=== PATIENT | female | born 1985 | race Caucasian/White ===

== ENCOUNTER → 2017-07-17 10:54 | Observation (INO) ==
[2017-07-16 23:43] LABS: Bilirubin,Urine Moderate (Negative); Blood,Urine Negative (Negative); Clarity,Urine Turbid (Clear); Color,Urine Dark Yellow (Yellow); Glucose,Urine (UA) Normal (Normal); Ketones,Urine 40 mg/dL (Negative); Leukocyte Esterase,Urine Moderate (Negative); Nitrite,Urine Negative (Negative); Protein,Urine 100 mg/dL (Neg-Trace); Specific Gravity,Urine 1.029 (1.010-1.025); Urobilinogen,Urine Normal (Normal)
[2017-07-16 23:45] LABS: Bacteria,Urine Many per hpf (None-Few); RBC,Urine 0-3 per hpf (0-3); Squamous Epithelial Cell,Urine Many per lpf (None-Few); WBC,Urine 50-100 per hpf (0-3)
[2017-07-16 23:53] LABS: Amphetamine Screen,Urine Positive ng/mL (Cutoff=1000); Barbiturate Screen,Urine Negative ng/mL (Cutoff=200); Benzodiazepines Screen,Urine Negative ng/mL (Cutoff=200); Cannabinoid Screen,Urine Positive ng/mL (Cutoff = 50); Cocaine Screen,Urine Negative ng/mL (Cutoff= 300); Opiate Screen,Urine Negative ng/mL (Cutoff=300); Phencyclidine Screen,Urine Negative ng/mL (Cutoff=25)
--- NOTE | 2017-07-17 00:02 | OB/GYN History & Physical ---
Date of Encounter: 07/17/17 Time of Encounter: 00:00 Assessment and Plan (1) No care in current Current visit: Yes Status: Acute No care ultrasound ordered to determine EGA and placental location labs to be drawn GC/chlamydia cultures collected Qualifiers: Trimester: second trimester Qualified Code(s): O09.32 - Supervision of with insufficient care, second trimester (2) complicated by subutex maintenance, antepartum Current visit: Yes Status: Acute UDS collected and sent (3) Marijuana abuse Current visit: Yes Status: Acute Social work consult (4) Non-compliant patient Current visit: No Status: Chronic prental care work up Qualifiers: Trimester: second trimester Qualified Code(s): O09.892 - Supervision of other high risk pregnancies, second trimester; Z91.19 - Patient's noncompliance with other medical treatment and regimen History of Present Illness Chief complaint: pressure and contractions HPI: Ms. Archuleta is a 32 year old female with unknown gestational age presents to labor and delivery with complaints of pressure and contractions. Patient has not had any care this . Patient reports LMP was about 9 months ago. Patient denies any vaginal bleeding, LOF or urinary symptoms. Patient does report blurred vision out of right eye that became red and irritated about 3 weeks ago. 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 Patient is currently on subutex 4mg daily per [place] in [facility]. Patient reports last delivery was a primary c/s for breech presentation. Past Med Surg Social Fam HX - Past Medical History Source: patient Medical history: hepatitis, other Psychiatric history: no psych history - Past Surgical History Surgical History: cholecystectomy, other (Fusion of posterior lumbar) - Social History Smoking Status: Current every day smoker Smokeless Tobacco Status: No Alcohol use: none Drug use: marijuana, methamphetamine, other Activity Level: Independent ambulation Recent Out of Country Travel Within the Last 8 Weeks: No Exposure or Possible Exposure to Illness During Travel: No - Family History Mother Living Status: Still Living Hx Family Cardiac Disorders: No Hx Family Respiratory Disorders: No Hx Family Cancer: No Hx Family GI Disorders: No Hx Family Endocrine Disorder: No Hx Family Neuromuscular Disorders: No Hx Family Neurologic Disorders: No Hx Family HEENT Disorders: No Hx Family Autoimmune Disorders: No Obstetrical History - Pregnancies : 6 Para: 5 Term: 5 : 0 Ab's: 0 Livin - History/Complications History/Complications: 5th delivery primary c/s for breech Medications and Allergies Buprenorphine HCl [Subutex] 8 mg SL BID 07/31/15 [History] Gabapentin [Neurontin] 800 mg PO TID 10/26/15 [History] 3 Allergy/AdvReac Type Severity Reaction Status Date / Time No Known Allergies Allergy Verified 10/26/15 15:46 Review of System OB - Constitutional Constitutional ROS IM: no chills, no fever(s), no headache(s) - Eyes Eyes: right: blurred vision, discharge (in the mornings) - Cardiovascular Cardiovascular: no chest pain, no edema, no irregular heart rhythm, no lightheadedness, no palpitations, no pedal edema, no syncope - Respiratory Respiratory: no cough - Gastrointestinal Gastrointestinal: no abdominal pain, no constipation, no diarrhea, no heartburn , no nausea, no vomiting - Genitourinary Genitourinary: no abnormal vaginal bleeding, no difficulty urinating, no dysuria , no flank pain, no urinary frequency, no urinary hesitancy, no vaginal discharge, no vaginal odor, no vaginal pruritis Exam - Constitutional Constitutional: well developed, well nourished, no acute distress, average body habitus - HEENT HEENT: Normocephaly, Mucus Membranes Moist - Neck Neck exam: full ROM, supple - Lungs Respiratory exam: CTAB - Cardiovascular Cardiovascular exam: RRR, +S1, +S2 - Abdomen Abdomen: Present: bowel sounds normal, gravid, non tender - Extremities Extremities exam: full ROM, normal capillary refill Deep Tendon Reflex Grade: 2+ Normal - Vagina Vagina: Present: normal moisture, discharge (moderate amount of white discharge) - Uterus Uterus exam: Present: normal contour - Anus/Rectum Anus/Rectum: Present: normal perianal skin - Comments Comments: FH 29cm, Speculum exam: moderate amount of white discharge. Cervix appears to be visually closed. GC/Chlamydia cultures collected. Results Abnormal lab results Urine Clarity Turbid (Clear) A 07/16/17 23:30 Ur Specific [place] 1.029 (1.010-1.025) H 07/16/17 23:30 Urine Protein 100 mg/dL (Neg-Trace) H 07/16/17 23:30 Urine Ketones 40 mg/dL (Negative) H 07/16/17 23:30 Urine Bilirubin Moderate (Negative) H 07/16/17 23:30 Ur Leukocyte Esterase Moderate (Negative) H 07/16/17 23:30 Urine Microscopic WBC 50-100 per hpf (0-3) H 07/16/17 23:30 Ur Squamous Epith Cells Many per lpf (None-Few) H 07/16/17 23:30 Urine Bacteria Many per hpf (None-Few) H 07/16/17 23:30 Ur Culture Indicated? NO. (NO) A 07/16/17 23:30 Ur Amphetamines Screen Positive ng/mL ([id number]) H 07/16/17 23:30 U Marijuana (THC) Screen Positive ng/mL (Cutoff = 50) H 07/16/17 23:30 All other labs normal. - VTE Reasons for not Prescribing Prophylaxis: Treatment not Indicated - Low risk for VTE
[2017-07-17 01:00] LABS: Basophils # 0.1 K/mcL (0.0-0.2); Basophils % 0.4 %; Eosinophils # 0.1 K/mcL (0.0-0.6); Eosinophils % 0.5 %; Hematocrit 38.1 % (35.3-44.9); Hemoglobin 12.1 g/dL (11.5-15.4); Immature Granulocytes % 0.7 % (0-4); Lymphocytes # 3.3 K/mcL (0.6-4.6); Lymphocytes % 17.6 %; Mean Corpuscular HGB Conc 31.8 g/dL (31.6-35.5); Mean Corpuscular Hemoglobin 23.4 pg (28.0-33.3); Mean Corpuscular Volume 73.8 fL (83.0-100.0); Mean Platelet Volume 10.3 fL (9.4-12.4); Monocytes # 1.3 K/mcL (0.0-1.3); Monocytes % 6.7 %; Platelet Count 261 K/mcL (140-400); Red Blood Count 5.16 M/mcL (3.82-4.97); Red Cell Distribution Width 15.3 % (11.5-14.5); Segmented Neutrophils % 74.1 %
[2017-07-17 03:44] LABS: HIV-1&2 Antibody & p24 Ag Nonreactive (Nonreactive); Hepatitis B Surface Antigen Nonreactive (Nonreactive)
--- NOTE | 2017-07-17 10:46 | Discharge Summary ---
Date of Encounter: 07/17/17 Time of Encounter: 09:00 - Discharge Diagnosis (1) Marijuana abuse Priority: Secondary Status: Acute (2) No care in current Priority: Primary Status: Acute Comments: To office for ultrasound for GA, fluid, placental location, dopplers. Qualifiers: Trimester: second trimester Qualified Code(s): O09.32 - Supervision of with insufficient care, second trimester (3) complicated by subutex maintenance, antepartum Priority: Secondary Status: Acute - Discharge Medications Home Medications: Buprenorphine HCl [Subutex] 8 mg SL BID 07/31/15 [History] Gabapentin [Neurontin] 800 mg PO TID 10/26/15 [History] Allergies/Adverse Reactions: 3 Allergy/AdvReac Type Severity Reaction Status Date / Time No Known Allergies Allergy Verified 10/26/15 15:46 Data Procedures and tests throughout hospitalization: Laboratory Tests 07/16/17 07/16/17 07/16/17 23:27 23:30 23:30 WBC RBC Hgb Hct MCV MCH MCHC RDW Plt Count MPV Immature Gran % Seg Neutrophils % Lymphocytes % Monocytes % Eosinophils % Basophils % Neutrophils # Lymphocytes # Monocytes # Eosinophils # Basophils # Urine Color Dark Yellow Urine Clarity Turbid A Urine pH 6.0 Ur Specific [place] 1.029 H Urine Protein 100 H Urine Glucose (UA) Normal Urine Ketones 40 H Urine Blood Negative Urine Nitrite Negative Urine Bilirubin Moderate H Urine Urobilinogen Normal Ur Leukocyte Esterase Moderate H Urine Microscopic RBC 0-3 Urine Microscopic WBC 50-100 H Ur Squamous Epith Cells Many H Urine Bacteria Many H Ur Culture Indicated? NO. A Urine Opiates Screen Negative Ur Barbiturates Screen Negative Ur Phencyclidine Scrn Negative Ur Amphetamines Screen Positive H U Benzodiazepines Scrn Negative Urine Cocaine Screen Negative U Marijuana (THC) Screen Positive H Chlam trachomat DNA PCR Hep Bs Antigen Nonreactive HIV Ag/Ab Combo Qual Nonreactive N.gonorrhoeae DNA (PCR) Blood Type 07/17/17 07/17/17 07/17/17 00:00 00:30 00:36 WBC 18.8 H RBC 5.16 H Hgb 12.1 Hct 38.1 MCV 73.8 L MCH 23.4 L MCHC 31.8 RDW 15.3 H Plt Count 261 MPV 10.3 Immature Gran % 0.7 Seg Neutrophils % 74.1 Lymphocytes % 17.6 Monocytes % 6.7 Eosinophils % 0.5 Basophils % 0.4 Neutrophils # 14.0 H Lymphocytes # 3.3 Monocytes # 1.3 Eosinophils # 0.1 Basophils # 0.1 Urine Color Urine Clarity Urine pH Ur Specific [place] Urine Protein Urine Glucose (UA) Urine Ketones Urine Blood Urine Nitrite Urine Bilirubin Urine Urobilinogen Ur Leukocyte Esterase Urine Microscopic RBC Urine Microscopic WBC Ur Squamous Epith Cells Urine Bacteria Ur Culture Indicated? Urine Opiates Screen Ur Barbiturates Screen Ur Phencyclidine Scrn Ur Amphetamines Screen U Benzodiazepines Scrn Urine Cocaine Screen U Marijuana (THC) Screen Chlam trachomat DNA PCR NOT DETECTED Hep Bs Antigen HIV Ag/Ab Combo Qual N.gonorrhoeae DNA (PCR) NOT DETECTED Blood Type A POSITIVE Labs on day of discharge: Labs from last 24 hours 07/17/17 07/17/17 07/17/17 00:36 00:30 00:00 WBC 18.8 H RBC 5.16 H Hgb 12.1 Hct 38.1 MCV 73.8 L MCH 23.4 L MCHC 31.8 RDW 15.3 H Plt Count 261 MPV 10.3 Immature Gran % 0.7 Seg Neutrophils % 74.1 Lymphocytes % 17.6 Monocytes % 6.7 Eosinophils % 0.5 Basophils % 0.4 Neutrophils # 14.0 H Lymphocytes # 3.3 Monocytes # 1.3 Eosinophils # 0.1 Basophils # 0.1 Urine Color Urine Clarity Urine pH Ur Specific [place] Urine Protein Urine Glucose (UA) Urine Ketones Urine Blood Urine Nitrite Urine Bilirubin Urine Urobilinogen Ur Leukocyte Esterase Urine Microscopic RBC Urine Microscopic WBC Ur Squamous Epith Cells Urine Bacteria Ur Culture Indicated? Urine Opiates Screen Ur Barbiturates Screen Ur Phencyclidine Scrn Ur Amphetamines Screen U Benzodiazepines Scrn Urine Cocaine Screen U Marijuana (THC) Screen Chlam trachomat DNA PCR NOT DETECTED Hep Bs Antigen HIV Ag/Ab Combo Qual N.gonorrhoeae DNA (PCR) NOT DETECTED Blood Type A POSITIVE 07/16/17 07/16/17 07/16/17 23:30 23:30 23:27 WBC RBC Hgb Hct MCV MCH MCHC RDW Plt Count MPV Immature Gran % Seg Neutrophils % Lymphocytes % Monocytes % Eosinophils % Basophils % Neutrophils # Lymphocytes # Monocytes # Eosinophils # Basophils # Urine Color Dark Yellow Urine Clarity Turbid A Urine pH 6.0 Ur Specific [place] 1.029 H Urine Protein 100 H Urine Glucose (UA) Normal Urine Ketones 40 H Urine Blood Negative Urine Nitrite Negative Urine Bilirubin Moderate H Urine Urobilinogen Normal Ur Leukocyte Esterase Moderate H Urine Microscopic RBC 0-3 Urine Microscopic WBC 50-100 H Ur Squamous Epith Cells Many H Urine Bacteria Many H Ur Culture Indicated? NO. A Urine Opiates Screen Negative Ur Barbiturates Screen Negative Ur Phencyclidine Scrn Negative Ur Amphetamines Screen Positive H U Benzodiazepines Scrn Negative Urine Cocaine Screen Negative U Marijuana (THC) Screen Positive H Chlam trachomat DNA PCR Hep Bs Antigen Nonreactive HIV Ag/Ab Combo Qual Nonreactive N.gonorrhoeae DNA (PCR) Blood Type Date of admission: 07/16/17 23:05 Primary care physician: PCP NONE Consults: 07/17/17 00:54 Consult to Collection Team Lead (W&C) [CONS] Routine Reason For Exam: Reason for SW Consult: NO care, history of heroin and percocet abuse , on subutex, does not have custody of children. Discharging clinician: Bridgette Perry Anticipated date of discharge: 07/17/17 - Patient Status Disposition: Home, Self-Care Condition: Good Functional capacity at discharge: independent ambulation Overall status at discharge: patient is progressing back to baseline - Discharge Instructions Follow Up With: NONE,PCP [Primary Care Provider] - - Diet and Activity Diet: regular diet Hospital Course INVESTIGATIONS DIRECTOR Time Attestation: Total time spent providing and/or coordinating discharge services: Exam - Constitutional General appearance IM: A&O X 3 - Respiratory Respiratory exam: Present: CTAB - Cardiovascular Cardiovascular exam IM: Present: RRR - GI/Abdominal GI/Abdominal exam IM: soft - Neurological Exam Neurological exam: oriented X3 - VTE Reasons for not Prescribing Prophylaxis: Treatment not Indicated - Low risk for VTE
[~2017-07-17 10:54] MED LIST: Lidocaine -MPF 1% 2 ML VIAL INFILT ONE; Lidocaine -MPF 1% 2 ML VIAL ONE; Ringers Solution, Lactated 1,000 ML IVC SCH; Ringers Solution, Lactated 1,000 ML ONE; cefTRIAXone 500 MG VIAL IM ONE
[2017-07-17 15:01] LABS: Rubella IgG Antibody POSITIVE (POSITIVE); Varicella Zoster IgG Antibody Positive
== END | disposition home or self-care (01) ==
LOC: 1NENULAB
PROVIDERS: ADMIT Advanced Practice Midwife; ATTEND Advanced Practice Midwife

== ENCOUNTER 2017-07-31 03:09 | Inpatient (IN) ==
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
[2017-07-31 06:14] LABS: Basophils # 0.1 K/mcL (0.0-0.2); Basophils % 0.5 %; Eosinophils # 0.1 K/mcL (0.0-0.6); Eosinophils % 0.6 %; Hematocrit 36.3 % (35.3-44.9); Hemoglobin 11.2 g/dL (11.5-15.4); Immature Granulocytes % 0.6 % (0-4); Lymphocytes # 1.9 K/mcL (0.6-4.6); Lymphocytes % 10.5 %; Mean Corpuscular HGB Conc 30.9 g/dL (31.6-35.5); Mean Corpuscular Hemoglobin 22.7 pg (28.0-33.3); Mean Corpuscular Volume 73.6 fL (83.0-100.0); Mean Platelet Volume 10.4 fL (9.4-12.4); Monocytes % 5.9 %; Neutrophils # 14.4 K/mcL (1.6-8.9); Platelet Count 235 K/mcL (140-400); Red Blood Count 4.93 M/mcL (3.82-4.97); Red Cell Distribution Width 15.7 % (11.5-14.5); Segmented Neutrophils % 81.9 %
[2017-07-31] MEDS ORDERED: Oxytocin 20 units/ LR 1000 mL 20 UNIT/1,000 ML BAG IVC SCH (06:44)
[2017-07-31] MEDS ORDERED: Acetaminophen 325 MG TABLET PO PRN (06:44)
[2017-07-31 08:13] LABS: Amphetamine Screen,Urine Positive ng/mL (Cutoff=1000); Barbiturate Screen,Urine Negative ng/mL (Cutoff=200); Benzodiazepines Screen,Urine Negative ng/mL (Cutoff=200); Cannabinoid Screen,Urine Negative ng/mL (Cutoff = 50); Cocaine Screen,Urine Negative ng/mL (Cutoff= 300); Opiate Screen,Urine Negative ng/mL (Cutoff=300); Phencyclidine Screen,Urine Negative ng/mL (Cutoff=25)
[2017-07-31] MEDS: *HR* Buprenorphine HCl 2 MG SUBLINGUAL TABLET SL SCH (08:38)
[2017-07-31] MEDS: Prenatal Vit/FA 1 EACH TABLET PO SCH (08:38)
[2017-07-31] MEDS ORDERED: CEFAZOLIN IVPB SCH (10:35)
[2017-07-31] MEDS ORDERED: SODIUM CHLORIDE MINI 0.9% IVPB SCH (10:35)
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
[2017-07-31] MEDS ORDERED: Lidocaine -MPF 2% 2 ML VIAL ONE (10:56)
[2017-07-31] MEDS: CeFAZolin Premix DUPLEX 2,000 MG/50 ML BAG IVPB SCH (14:42)
[2017-07-31] MEDS: Ibuprofen 600 MG TABLET PO PRN (20:24)
[2017-08-01] MEDS: CeFAZolin Premix DUPLEX 2,000 MG/50 ML BAG IVPB SCH ×3 (00:12→15:29)
[2017-08-01] MEDS: *HR* Buprenorphine HCl 2 MG SUBLINGUAL TABLET SL SCH (08:10)
[2017-08-01] MEDS: Prenatal Vit/FA 1 EACH TABLET PO SCH (08:11)
[2017-08-01 08:13] VITALS: BP 98/60
[2017-08-01 09:23] LABS: Basophils # 0.1 K/mcL (0.0-0.2); Basophils % 0.7 %; Eosinophils # 0.4 K/mcL (0.0-0.6); Eosinophils % 3.3 %; Hematocrit 32.2 % (35.3-44.9); Hemoglobin 9.7 g/dL (11.5-15.4); Immature Granulocytes % 0.7 % (0-4); Lymphocytes # 3.2 K/mcL (0.6-4.6); Lymphocytes % 30.4 %; Mean Corpuscular HGB Conc 30.1 g/dL (31.6-35.5); Mean Corpuscular Hemoglobin 22.5 pg (28.0-33.3); Mean Corpuscular Volume 74.5 fL (83.0-100.0); Mean Platelet Volume 10.4 fL (9.4-12.4); Monocytes # 0.7 K/mcL (0.0-1.3); Monocytes % 6.9 %; Neutrophils # 6.1 K/mcL (1.6-8.9); Nucleated Red Blood Cells 0.3 /100 WBC (0); Platelet Count 250 K/mcL (140-400); Red Blood Count 4.32 M/mcL (3.82-4.97); Red Cell Distribution Width 15.7 % (11.5-14.5)
[2017-08-01 09:50] LABS: BUN/Creatinine Ratio 13 (6-26); Blood Urea Nitrogen 6 mg/dL (6-20); Calcium 8.4 mg/dL (8.6-10.3); Carbon Dioxide 23 mEq/L (23-29); Chloride 109 mEq/L (98-107); Glucose 95 mg/dL (70-105); Osmolality,Calculated 287 (280-300); Potassium 3.5 mEq/L (3.5-5.1); Sodium 140 mEq/L (136-145); eGFR For African Americans > 60 (> 60); eGFR For Non-African Americans > 60 (> 60)
--- NOTE | 2017-08-01 12:18 | Internal Med Progress Note ---
Date of Encounter: 08/01/17 Time of Encounter: 12:50 - Assessment and plan (1) Superficial thrombophlebitis during puerperium, Current Visit: Yes Status: Acute Assessment and plan: Continue antibiotics No indication for anticagulation Elevatelimb When cleared for discharge, send on po Augmentin Medicine will sign off (2) Cellulitis Current Visit: Yes Status: Acute Qualifiers: Site of cellulitis: extremity Site of cellulitis of extremity: lower extremity Laterality: unspecified laterality Qualified Code(s): L03.119 - Cellulitis of unspecified part of limb - Time Spent With Patient Total time spent is greater than 50% in coordination of care (as documented) at patient's floor/unit and/or counseling patient: - Subjective Interval history: Seen and evaluated at the bedside She reports remarkable improvement in her LE bilaterally Venous doppler shows R LSV thrombus, no DVT REcommend 5 more days of antibiotics-Augmentin upon discharge No current indication for anticoagulation for a superficial thrombus However, recommend follow up with PCP and repeat Doppler in 6-10 weeks Represent to ER if RLE swelling recurs ECHO is WNL Medicine will sign off at this time - Constitutional Vitals: Temp Pulse Resp BP Pulse Ox 97.9 F 57 14 98/60 100 08/01/17 08:12 08/01/17 08:12 08/01/17 08:12 08/01/17 08:12 08/01/17 08:12 General appearance: Present: A&O X 3, pleasant, answers questions appropriately - Head Head exam: Present: atraumatic, normocephalic - Eye Eye exam: Present: PERRL, conjuntiva pink, sclera anicteric Pupils: Present: PERRL - Neck Neck exam general surgery: Present: supple, trachea midline. Absent: lymphadenopathy - Respiratory Respiratory exam: Present: CTAB. Absent: accessory muscle use, rales, rhonchi, wheezes - Cardiovascular Cardiovascular exam: Present: RRR, +S1, +S2. Absent: diastolic murmur, gallop, rubs, systolic murmur - GI/Abdominal GI/Abdominal exam: Present: normal bowel sounds, soft, no peritoneal signs. Absent: distended, tenderness - Extremities Exam Extremities exam: Present: warm, radial pulses palpable and symmetrical. Absent : calf tenderness, cyanotic, pedal edema - Neurological Exam Neurological exam: Present: alert, CN II-XII intact, oriented X3, no focal deficits. Absent: pronater drift, facial droop, speech deficit - Skin Skin exam: Present: dry, intact Internal Medicine: Result - Labs CBC & Chem 7: 08/01/17 08:57 08/01/17 08:57 Labs: Short CBC 08/01/17 Range/Units 08:57 WBC 10.5 (4.3-11.1) K/mcL Hgb 9.7 L D (11.5-15.4) g/dL Hct 32.2 L (35.3-44.9) % Plt Count 250 (140-400) K/mcL Neutrophils # 6.1 (1.6-8.9) K/mcL BMP 08/01/17 08:57 Sodium 140 Potassium 3.5 Chloride 109 H Carbon Dioxide 23 BUN 6 Creatinine 0.45 L Glucose 95 Calcium 8.4 L - Impressions Impressions Echocardiogram 07/31/17 10:36 Impressions: LVEF 60%. Indeterminate diastolic function. Normal right ventricular structure and function. Mild mitral regurgitation. Mild tricuspid regurgitation. No pulmonary hypertension. Left Ventricular Wall Motion: Rest Echo Findings All wall segments showed normal motion. Findings: Study Quality * Technically adequate exam. ECG Findings * Normal sinus rhythm. Left Ventricle * LVEF 60%. * Normal LV chamber size, wall thickness and function. * Indeterminate diastolic function. Right Ventricle * Normal right ventricular structure and function. Left Atrium * Mildly dilated left atrium. Right Atrium * Normal right atrial size. Aortic Valve * No aortic regurgitation. * Trileaflet aortic valve. * No aortic stenosis. Mitral Valve * No mitral stenosis. * Normal mitral valve structure. * Mild mitral regurgitation. Tricuspid Valve * Normal tricuspid valve structure. * Mild tricuspid regurgitation. * Estimated RA pressure is 3 mmHg. * Estimated RVSP is 30 mmHg. * No pulmonary hypertension. Pulmonic Valve * Pulmonic valve is not well visualized. * No pulmonic stenosis. * Trace pulmonic regurgitation. Pulmonary Artery * Pulmonary artery not well visualized. Aorta * Normally sized aortic root. Pericardium * There is no pericardial effusion present. Interatrial Septum * No evidence of PFO by color Doppler. IVC * Normal IVC dimensions and inspiratory collapse. - VTE Reasons for not Prescribing Prophylaxis: Treatment not Indicated - Low risk for VTE Consult Discharge Plan - Plan Referrals: NONE,PCP [Primary Care Provider] -
[2017-08-01] MEDS: Ibuprofen 600 MG TABLET PO PRN (12:32)
--- NOTE | 2017-08-01 13:59 | Discharge Summary ---
Date of Encounter: 08/01/17 Time of Encounter: 13:54 - Discharge Diagnosis (1) Cellulitis Priority: Primary Status: Acute Comments: Lower extremites no longer reddned. Pt states very improved over yesterday. Will discharge home on Augmentin per medicine recommendation. Qualifiers: Site of cellulitis: extremity Site of cellulitis of extremity: lower extremity Laterality: unspecified laterality Qualified Code(s): L03.119 - Cellulitis of unspecified part of limb (2) Superficial thrombophlebitis during puerperium, Priority: Secondary Status: Acute Comments: Per medicine no need for anticoagulation. Pt to followup with PCP 6 weeks (3) (vaginal after ) Priority: Primary Status: Acute Comments: Meeting PP milestones, pain well managed, bleeding minimal, bottle feeding, desires discharge. - Discharge Medications Prescriptions: Ibuprofen [Motrin] 600 mg PO Q6HR PRN #60 tablet PRN Reason: Cramping Amoxicillin/Clavulanate [Augmentin] 875 mg PO BIDWM #10 tablet Docusate [Colace] 100 mg PO BID #60 capsule Ferrous Sulfate 325 mg PO DAILY #60 tablet Home Medications: Buprenorphine HCl [Subutex] 8 mg SL BID 07/31/15 [History] Acetaminophen [Tylenol] 650 mg PO Q6HR PRN tablet 08/01/17 [Rx] Amoxicillin/Clavulanate [Augmentin] 875 mg PO BIDWM #10 tablet 08/01/17 [Rx] Docusate [Colace] 100 mg PO BID #60 capsule 08/01/17 [Rx] Ferrous Sulfate 325 mg PO DAILY #60 tablet 08/01/17 [Rx] Ibuprofen [Motrin] 600 mg PO Q6HR PRN #60 tablet 08/01/17 [Rx] Vit/FA 1 each PO DAILY tablet 08/01/17 [Rx] Allergies/Adverse Reactions: 3 Allergy/AdvReac Type Severity Reaction Status Date / Time No Known Allergies Allergy Verified 10/26/15 15:46 Data Procedures and tests throughout hospitalization: Laboratory Tests 07/31/17 07/31/17 08/01/17 05:59 07:30 08:57 WBC 17.6 H 10.5 RBC 4.93 4.32 Hgb 11.2 L 9.7 L D Hct 36.3 32.2 L MCV 73.6 L 74.5 L MCH 22.7 L 22.5 L MCHC 30.9 L 30.1 L RDW 15.7 H 15.7 H Plt Count 235 250 MPV 10.4 10.4 Immature Gran % 0.6 0.7 Seg Neutrophils % 81.9 58.0 Lymphocytes % 10.5 30.4 Monocytes % 5.9 6.9 Eosinophils % 0.6 3.3 Basophils % 0.5 0.7 Neutrophils # 14.4 H 6.1 Lymphocytes # 1.9 3.2 Monocytes # 1.0 0.7 Eosinophils # 0.1 0.4 Basophils # 0.1 0.1 Nucleated RBCs/100 WBC 0.3 H Sodium Potassium Chloride Carbon Dioxide BUN Creatinine Est GFR ( Amer) Est GFR (Non-Af Amer) BUN/Creatinine Ratio Glucose Calculated Osmolality Calcium Urine Opiates Screen Negative Ur Barbiturates Screen Negative Ur Phencyclidine Scrn Negative Ur Amphetamines Screen Positive H U Benzodiazepines Scrn Negative Urine Cocaine Screen Negative U Marijuana (THC) Screen Negative 08/01/17 08:57 WBC RBC Hgb Hct MCV MCH MCHC RDW Plt Count MPV Immature Gran % Seg Neutrophils % Lymphocytes % Monocytes % Eosinophils % Basophils % Neutrophils # Lymphocytes # Monocytes # Eosinophils # Basophils # Nucleated RBCs/100 WBC Sodium 140 Potassium 3.5 Chloride 109 H Carbon Dioxide 23 BUN 6 Creatinine 0.45 L Est GFR ( Amer) > 60 Est GFR (Non-Af Amer) > 60 BUN/Creatinine Ratio 13 Glucose 95 Calculated Osmolality 287 Calcium 8.4 L Urine Opiates Screen Ur Barbiturates Screen Ur Phencyclidine Scrn Ur Amphetamines Screen U Benzodiazepines Scrn Urine Cocaine Screen U Marijuana (THC) Screen Labs on day of discharge: Labs from last 24 hours 08/01/17 08/01/17 08:57 08:57 WBC 10.5 RBC 4.32 Hgb 9.7 L D Hct 32.2 L MCV 74.5 L MCH 22.5 L MCHC 30.1 L RDW 15.7 H Plt Count 250 MPV 10.4 Immature Gran % 0.7 Seg Neutrophils % 58.0 Lymphocytes % 30.4 Monocytes % 6.9 Eosinophils % 3.3 Basophils % 0.7 Neutrophils # 6.1 Lymphocytes # 3.2 Monocytes # 0.7 Eosinophils # 0.4 Basophils # 0.1 Nucleated RBCs/100 WBC 0.3 H Sodium 140 Potassium 3.5 Chloride 109 H Carbon Dioxide 23 BUN 6 Creatinine 0.45 L Est GFR ( Amer) > 60 Est GFR (Non-Af Amer) > 60 BUN/Creatinine Ratio 13 Glucose 95 Calculated Osmolality 287 Calcium 8.4 L - Impressions ITS Impressions Echocardiogram 07/31/17 10:36 Impressions: LVEF 60%. Indeterminate diastolic function. Normal right ventricular structure and function. Mild mitral regurgitation. Mild tricuspid regurgitation. No pulmonary hypertension. Left Ventricular Wall Motion: Rest Echo Findings All wall segments showed normal motion. Findings: Study Quality * Technically adequate exam. ECG Findings * Normal sinus rhythm. Left Ventricle * LVEF 60%. * Normal LV chamber size, wall thickness and function. * Indeterminate diastolic function. Right Ventricle * Normal right ventricular structure and function. Left Atrium * Mildly dilated left atrium. Right Atrium * Normal right atrial size. Aortic Valve * No aortic regurgitation. * Trileaflet aortic valve. * No aortic stenosis. Mitral Valve * No mitral stenosis. * Normal mitral valve structure. * Mild mitral regurgitation. Tricuspid Valve * Normal tricuspid valve structure. * Mild tricuspid regurgitation. * Estimated RA pressure is 3 mmHg. * Estimated RVSP is 30 mmHg. * No pulmonary hypertension. Pulmonic Valve * Pulmonic valve is not well visualized. * No pulmonic stenosis. * Trace pulmonic regurgitation. Pulmonary Artery * Pulmonary artery not well visualized. Aorta * Normally sized aortic root. Pericardium * There is no pericardial effusion present. Interatrial Septum * No evidence of PFO by color Doppler. IVC * Normal IVC dimensions and inspiratory collapse. Date of admission: 07/31/17 05:34 Primary care physician: PCP NONE Consults: 07/31/17 05:38 Consult to Hospitalist [CONS] Routine Consulting Provider: Hospitalist Karie Reason for Consult: Possible cellulitis to bilat. lower extremities Time Notified: 05:38 Call Completed: Yes 07/31/17 06:44 Consult to [employer] [CONS] Routine Reason for SW Consult: subutex, at home Discharging clinician: Audrey Yuan Anticipated date of discharge: 08/01/17 - Patient Status Disposition: Home, Self-Care Condition: Good Functional capacity at discharge: independent ambulation Overall status at discharge: patient is progressing back to baseline - Discharge Instructions Instructions: Cellulitis (DC) Follow Up With: NONE,PCP [Primary Care Provider] - - Diet and Activity Activity: resume usual activities as tolerated Diet: regular diet Hospital Course Reason for admission: other (Out of hospital ) Delivery: Episiotomy: none Laceration: none Other procedures: none Discharge diagnosis: IUP at term delivered baby: female Hospital course: admitted following unattended [id number] . While in hospital patient noted to have bilateral lower extremity cellulitis treated with IV antibiotics. Venous Doppler showed superficial DVT, no anti- coagulation needed. Stable and appropriate for discharge home Time Attestation: Total time spent providing and/or coordinating discharge services: Time Spent: Less than 30 minutes Exam - Constitutional Vitals: Temp Pulse Resp BP Pulse Ox 97.9 F 57 14 98/60 100 08/01/17 08:12 08/01/17 08:12 08/01/17 08:12 08/01/17 08:12 08/01/17 08:12 General appearance IM: A&O X 3 - Respiratory Respiratory exam: Present: CTAB - Cardiovascular Cardiovascular exam IM: Present: RRR - GI/Abdominal GI/Abdominal exam IM: normal bowel sounds, soft - Uterine Tone: Firm Uterus Position: At Umbilicus - Extremities Exam Extremities exam IM: Present: normal capillary refill, normal inspection - Neurological Exam Neurological exam: normal gait, oriented X3 - Psychiatric Additional comments: reports good mood.
== END 2017-08-01 16:55 | disposition home or self-care (01) | DRG 561 ==
LOC: 1NENULAB → 1NENUOBS 06:24
PROVIDERS: ADMIT Advanced Practice Midwife; ATTEND Advanced Practice Midwife